=== PATIENT | female | born 1945 ===

== ENCOUNTER 2020-11-11 17:22 | Inpatient (IN) | payer MEDICARE, MEDICAID ==
[~2020-11-11] VITALS: Ht 147.3 cm; Wt 43.5 kg
[2020-11-11 17:00] VITALS: BP 168/75; PULSE 65; TEMP 97.9
[2020-11-11] MEDS ORDERED: ASPIRIN 81M81 MG/TA2 PO (18:07)
[2020-11-11] MEDS ORDERED: MS CONTIN 660 MG/TAB PO (18:07)
[2020-11-11] MEDS ORDERED: MOVANTIK25 MG PO (18:08)
[2020-11-11] MEDS ORDERED: PROTONIX 40MG T40 MG PO (18:08)
[2020-11-11] MEDS ORDERED: RT SPIRIVA18 MCG IH (18:09)
[2020-11-11] MEDS ORDERED: CARAFATE 1GM1 G PO (18:09)
[2020-11-11 19:38] VITALS: BP 165/92; PULSE 65; TEMP 97.8
--- NOTE | 2020-11-11 19:45 | NUR ---
Called with c/o pain to right lower extremity-rating pain 8/10 on pain scale-described as constant ache with intermittent sharp jabs. States she usually takes her scheduled MS Contin at 02/12-states its behind now and she needs the times changed. Done at this time and administered. Noted to have elevated BPs 160s/90s. Will recheck in one hour post liang meds. Will continue to monitor.
[2020-11-11 20:00] LABS: CALCIUM 8.4 mg/dL (8.4-10.2); CREATININE, serum 0.68 (0.52-1.25); MAGNESIUM 2.1 mg/dL (1.6-2.3); POTASSIUM 3.4 mmol/L (3.4-5.0)
--- NOTE | 2020-11-11 20:00 | NUR ---
Report received, assumed care for night shfit. Assessment complete. A&Ox3-drowsy. IV to right AC flushes without difficulty. Admission orders initiated. Vitals stable-slightly elevated BP but rating pain 8/10 to right lower ext/pelvis-scheduled Ms Contin given per order. Plan of care discussed for this shift to include HS meds/pain meds/NPO at midnight/K protocol/calling for questions/concerns. Verbalizes understanding/denies questions/concerns. Call light in reach/bed alarm on. Will monitor.
[2020-11-11 20:05] LABS: PROTHROMBIN TIME 10.8 SECONDS (9.7-12.8)
[2020-11-11 20:07] LABS: PRE ALBUMIN 13.8 mg/dL (17.6-36.0)
[2020-11-11 20:11] LABS: TROPONIN-I 0.018 ng/mL (0.000-0.035)
[2020-11-11 21:07] VITALS: BP 143/82
--- NOTE | 2020-11-11 23:00 | NUR ---
Patient accidently spilled second dose of potassium. States she had taken in some of it but unsure on how much she actually drank before spilling. States she thinks she had taken almost half. WIll give 3rd dose a little early due to NPO at midnight and not taking all of second dose.
[2020-11-11 23:14] LABS: PH 7 (5-8); SQUAMOUS EPITHELIAL None Seen /hpf; URINE APPEARANCE Clear; URINE BACTERIA None Seen /hpf; URINE BILIRUBIN Negative (NEGATIVE); URINE BLOOD 2+ (NEGATIVE); URINE COLOR Straw; URINE GLUCOSE Negative (NEGATIVE); URINE KETONE Negative (NEGATIVE); URINE LEUKOCYTE ESTERASE Negative (NEGATIVE); URINE NITRATE Negative (NEGATIVE); URINE PROTEIN(semi-quant) Negative (NEGATIVE); URINE RBC 20-50 /hpf; URINE UROBILINOGEN Negative (NEGATIVE)
[2020-11-11 23:30] LABS: COLLECTION METHOD CLEAN CATCH
[2020-11-11 23:36] VITALS: BP 155/82; PULSE 60; TEMP 97.8
[2020-11-12] VITALS (13 sets, daily range): BP systolic 141–169; BP diastolic 67–89; PULSE 60–103; TEMP 97.6–99
--- NOTE | 2020-11-12 03:23 | NUR ---
Resting in bed eyes closed. No s/s of pain noted.
--- NOTE | 2020-11-12 03:53 | NUR ---
Called with c/o pain to right lower ext-rating pain 8/10 on pain scale-described as throbbing. Morphine 2mg given per dr order. Will monitor.
--- NOTE | 2020-11-12 06:01 | NUR ---
Rested most of this shift. Did receive one dose of morphine IV for pain. Has remained NPO since MN. SCD/VASILIY to left lower ext. Refused ice pack but is at bedside. Currently resting with eyes closed. Call light in reach/bed alarm on. Will monitor.
--- NOTE | 2020-11-12 06:23 | NUR ---
Called with c/o pain to right lower extremity/pelvis. Rating pain 8/10 on pain scale-described as constant throbbing with sharp jabs. Morphine given per dr order. Repositioned in bed with pillow support. Still refusing ice pack but left at bedside in case mind is changed. Denies any other questions/concerns. Call light in reach. Will monitor.
[2020-11-12 06:27] LABS: BASO # 0.1 (0.0-0.2); BASO % 1.1 % (0.0-2.0); EOS # 0.4 (0.0-0.7); EOS % 7.6 % (0-4.0); GRAN # 2.7 (1.4-6.5); GRAN % 51.2 % (42.2-75.2); LYMPH # 1.7 (1.2-3.4); LYMPH % 31.3 % (20.0-51.0); MEAN CELL VOLUME 89 fl (80.0-100.0); MEAN CORPUSCULAR HGB CONC 31 g/dl (33.0-37.0); MEAN PLATELET VOLUME 10.5 fl (7.4-10.4); MONO # 0.5 (0.1-0.6); MONO % 8.6 % (1.7-9.3); PLATELET COUNT 312 K/mm3 (130-400); RED BLOOD COUNT 3.27 M/mm3 (4.10-5.30); REDCELL DISTRIBUTION WIDTH-CV 14.4 % (11.5-14.5)
[2020-11-12 06:28] LABS: HEMOGLOBIN 9.1 g/dl (12.5-16.0); MEAN CORPUSCULAR HEMOGLOBIN 28 pg (27.0-31.0)
--- NOTE | 2020-11-12 06:33 | NUR ---
Dr Le paged to notify of consult.
--- NOTE | 2020-11-12 07:10 | NUR ---
Lying in bed with eyes open. Alert and oriented x4. Rates pain in right leg 8/10 at this time. Patient is aware that she is NPO, provide mouth swabs to moisten mouth. Discuss that cardiology will need to clear her for surgery. Patient denies additional needs or concerns at this time.
--- NOTE | 2020-11-12 09:00 | NUR ---
Page sent to Dr. Le to see if he seen page earlier this a.m. in regards to consult.
--- NOTE | 2020-11-12 09:03 | NUR ---
Call made to [facility] to obtain echo report. They will fax at this time.
--- NOTE | 2020-11-12 09:05 | NUR ---
Receive call back from Dr. Le and he is aware of consult.
--- NOTE | 2020-11-12 09:16 | NUR ---
Initial visit; Patient thanked Shift Supervisor for introducing herself and offering God's blessings.
--- NOTE | 2020-11-12 09:36 | NUR ---
SW met with the patient to discuss discharge plan. The patient lives alone in [place]. She states that her three sons: Fitz Jiménez (ph#[phone]), and Alonzo also live in [place]. She reports needing some assistance with bathing and has a cane. She states that her anxctffd-bs-gcs, Elida (ph#[phone]), is an RN and stays with her 3-4 hours everyday and assists her with bathing. She states that her three children check in on her everyday as well. The patient's PCP is Dr. Sujata Adler and she receives her medications from [facility] in [place]. She reports no difficulties obtaining her meds. The patient does not have a DPOA-HC and she was not interested in completing one while here. Her is and she has three children: Fitz Jiménez, and Alonzo. The patient has a hip fracture. SW discussed post-acute rehab upon discharge. The patient states that she broke her hip in the past and that she returned back home afterwards with assistance from family. The patient states that does not want to go anywhere and that she would prefer to return home again upon discharge and would have help from her family. SW then contacted the patient's son, Fitz, to review the above information. Fitz reports that he has the same concerns about the patient needing rehab, but he confirms that the patient broke her hip in the past and she returned home and rehabed the hip from there. He states that him and his family would like to get through the surgery first and then go from there. SW to continue to follow.
--- NOTE | 2020-11-12 11:00 | NUR ---
Rating pain 9/10 in right leg and requests pain medication. Will administer Morphine as prescribed. Patient resting in bed. Denies additional needs.
--- NOTE | 2020-11-12 11:39 | NUR ---
Dr. Webb calls to see if Cardio has cleared patient and to say that once patient is cleared they are able to get her in for surgery this afternoon, if cleared early enough. Page sent to JES Lemus, to provide update and see if clearance will be done early this afternoon.
--- NOTE | 2020-11-12 11:42 | NUR ---
Receive call back from JES Lemus with cardio, and they will be up to see patient.
--- NOTE | 2020-11-12 11:58 | NUR ---
Dr. Pete in to see patient. He clears patient for surgery. Dr. Webb notified.
--- NOTE | 2020-11-12 12:05 | NUR ---
Consent reviewed with the patient. Denies questions, verbalizes understanding and signs consent. Spoke with Elida, daughter in law, per patient request to let them know they will be taking patient for procedure at this time. Review visitor policy with Elida.
--- NOTE | 2020-11-12 12:13 | NUR ---
Júnior here to take patient to surgery via bed at this time.
--- NOTE | 2020-11-12 14:35 | NUR ---
Patient back to room via bed from PACU. Alert and oriented x4. No pain at this time. CMS to right lower extremity intact. Dressing to right hip CDI. Patient able to move lower extremities without difficulty. Denies needs at this time.
--- NOTE | 2020-11-12 15:09 | NUR ---
Rating pain 7/10 in right leg, sharp. Patient requests pain medication. Will administer as prescribed.
--- NOTE | 2020-11-12 16:13 | NUR ---
Sitting up in bed eating japanese fries and watching TV. Patient says that her son is upset about the one visitor policy. Explain to the patient why it is only one visitor. Patient verbalizes understanding. Denies additional needs at this time.
--- NOTE | 2020-11-12 16:41 | NUR ---
Lying in bed with eyes closed. Respirations even and unlabored. No signs or symptoms of discomfort noted at this time.
--- NOTE | 2020-11-12 18:08 | NUR ---
Rating pain 8-9/10 in right leg and requests pain medication. Administer Morphine as prescribed. Patient denies further needs at this time.
--- NOTE | 2020-11-12 20:30 | NUR ---
Patient resting in bed. Complaints of 10/10 pain to her right hip. Scheduled pain medication administered. Dressing to right hip clean, dry, and intact. SCDs and teds to bilateral legs. Fluids infusing. Patient's right leg was positioned inward. Pillow placed in between knees to better position her right leg. Patient complaining that the pain medicine is not controlling her pain and she needs more. Patient has been receiving 2 mg of morphine every couple hours and just had her scheduled 60 mg of MS contin.
--- NOTE | 2020-11-12 21:58 | NUR ---
Patient requested something for pain. Morphine administered. Patient repositioned on her side with a pillow between her knees and was given a warm blanket.
--- NOTE | 2020-11-13 02:18 | NUR ---
Patient just threw up. Patient reports she feels better now and does not want anything for nausea. She reports it is normal for her to throw up and has been happening for years.
[2020-11-13 04:00] VITALS: BP 156/79; PULSE 76; TEMP 98.3
--- NOTE | 2020-11-13 05:56 | NUR ---
Patient has had a lot of pain throughout the shift. Morphine given PRN. Patient repositioned to help her get more comfortable. Patient is eager to go home.
[2020-11-13 06:12] LABS: BASO # 0.1 (0.0-0.2); BASO % 0.6 % (0.0-2.0); EOS # 0.1 (0.0-0.7); EOS % 1.1 % (0-4.0); GRAN # 9.4 (1.4-6.5); GRAN % 83.7 % (42.2-75.2); LYMPH # 0.9 (1.2-3.4); LYMPH % 7.8 % (20.0-51.0); MEAN CELL VOLUME 89 fl (80.0-100.0); MEAN CORPUSCULAR HGB CONC 31 g/dl (33.0-37.0); MEAN PLATELET VOLUME 10.2 fl (7.4-10.4); MONO # 0.7 (0.1-0.6); MONO % 6.5 % (1.7-9.3); PLATELET COUNT 333 K/mm3 (130-400); RED BLOOD COUNT 3.52 M/mm3 (4.10-5.30); REDCELL DISTRIBUTION WIDTH-CV 14.2 % (11.5-14.5)
[2020-11-13 06:22] LABS: CALCIUM 8.2 mg/dL (8.4-10.2); CREATININE, serum 0.72 (0.52-1.25)
[2020-11-13 06:24] LABS: HEMATOCRIT 31.3 % (37.0-47.0); HEMOGLOBIN 9.6 g/dl (12.5-16.0); MEAN CORPUSCULAR HEMOGLOBIN 27 pg (27.0-31.0)
--- NOTE | 2020-11-13 07:00 | NUR ---
Lying in bed with eyes open. Alert and oriented x4. Rates pain to right leg 8/10. Explain that the rn night nurse has given her pain medication already. Patient is also having some nausea and reports that she has vomited a couple times and this is normal for her. Offer Zofran and the patient declines. Dressing to right hip CDI. Discuss with the patient that therapy will be coming by today to work with her. Patient verbalizes understanding. Denies additional needs at this time.
[2020-11-13 07:40] VITALS: BP 146/72; PULSE 74; TEMP 98.7
--- NOTE | 2020-11-13 07:55 | NUR ---
Patient continues to have some nausea, does not want to order breakfast at this time. Discuss Zofran with the patient and patient agrees. Call INDIRA Lawson, and orders placed for Zofran. Administer as prescribed. Patient resting in bed at this time. Denies additional needs.
--- NOTE | 2020-11-13 08:32 | NUR ---
Patient daughter in law Elida here. Patient still has some nausea and is having pain still. Elida says that the patient battles nausea and vomiting on a daily basis along with chronic pain. Patient has ordered some scrambled eggs to try to eat. Elida brought in patient home meds, Amitiza and Movantik. Patient prefers to take the Movantik over the AMitiza. Placed in med room and pharmacy made aware that the patient home meds were there.
--- NOTE | 2020-11-13 09:15 | NUR ---
PT and OT in room working with the patient. Patient assisted into chair. Rates pain in right leg 9/10, sharp, requests pain medication. Administer [place] as prescribed. Patient able to eat some crackers. Daughter in law remains in room with the patient. OT continues to work with the patient at this time. Denies additional needs.
--- NOTE | 2020-11-13 10:03 | NUR ---
Remains sitting up in recliner. Rates pain in right leg 03/06. Patient says that she she is due for pain medication next she would like the pills. Explain that it is too soon at this time but we will reassess when it is time for the medication. COntinues to have some nausea. Patient declines additional needs at this time.
--- NOTE | 2020-11-13 11:20 | NUR ---
PT notified SW that she would recommend home with supervision and home health, if not post-acute rehab. OT recommends home with family assist vs post-acute rehab. SW attempted to meet with the patient to review the above. She was sleeping. SW contacted the patient's son, Fitz, to discuss the above. Fitz reports that he needs to talk to his about the options and requests that SW contact him back at 1500. SW to continue to follow.
--- NOTE | 2020-11-13 11:48 | NUR ---
Patient sitting up in recliner with eyes closed. Respirations even and unlabored. No signs or symptoms of discomfort noted.
[2020-11-13 12:02] VITALS: BP 113/73; PULSE 75; TEMP 99.3
--- NOTE | 2020-11-13 12:06 | NUR ---
Patient calls and out and would like to get back to bed. Rating pain in right leg 7/10, describes as stabbing. Explain that we will bring pain medication when it is time as patient requests pain medication. Transfers from chair to bed with assist of one and use of walker. Gait slow but steady. Assist into comfortable position in bed. Denies additional needs at this time.
--- NOTE | 2020-11-13 13:25 | NUR ---
Lying in bed with eyes closed. Respirations even and unlabored. No signs or symptoms of discomfort noted at this time.
--- NOTE | 2020-11-13 14:36 | NUR ---
Patient calls out and would like medication for nausea and pain. Administer Zofran as prescribed. Rates pain in right leg 7/10, stabbing. Administer pain medication as prescribed. Patient resting in bed with eyes open. Says that eggcrate mattress has helped and is more comfortable. Denies additional needs at this time.
--- NOTE | 2020-11-13 15:29 | NUR ---
Lying in bed with eyes closed. Respirations even and unlabored. No signs or symptoms of discomfort noted at this time.
--- NOTE | 2020-11-13 15:47 | NUR ---
REGINO contacted the patient's son, Fitz, to follow up on preference for home with home health vs post-acute rehab. Fitz's , Elida, was also on the call. Fitz and Elida report that they have decided to purse with the patient coming home with their support. They are interested in home health from [facility] out of [place]. REGINO contacted and faxed a referral to Judy at [facility]. Judy reports that they are able to accept the patient for services. REGINO to update the patient's family. REGINO to continue to follow.
[2020-11-13 15:50] VITALS: BP 123/58; PULSE 71; TEMP 98.8
--- NOTE | 2020-11-13 15:52 | NUR ---
Lying in bed with eyes closed. Opens eyes when name called out. Rates pain 6/10 in right leg. Says later on she will want to try to get up to walk a little bit. Has ordered a sugar cookie and hot cocoa from the kitchen. Denies further needs at this time.
--- NOTE | 2020-11-13 17:16 | NUR ---
Lying in bed with eyes closed. Opens eyes when enter room. Patient had medium episode of brown emesis in bucket. Patient continues to have some nausea. Pain is getting better. Patient denies additional needs at this time.
--- NOTE | 2020-11-13 20:00 | NUR ---
PT COMPLAINS OF PAIN. MEDICATED WITH HS MEDS INCLUDING HER SCHEDULED MS CONTIN. PT HAS IVF INFUSING TO LEFT FOREARM. DRSG TO RIGHT HIP INTACT. REPOSITIONS SELF IN BED. BELL TO BSD WITH YELLOW URINE.
[2020-11-13 20:09] VITALS: BP 114/60; PULSE 72; TEMP 99.4
--- NOTE | 2020-11-13 23:06 | NUR ---
MEDICATED WITH NORCO 5/325MG 2 TABS PO AT THIS TIME FOR PAIN.
[2020-11-14 00:28] VITALS: BP 96/54; PULSE 64; TEMP 98.1
--- NOTE | 2020-11-14 02:36 | NUR ---
MEDICATED WITH NORCO 5/325MG 2 TABS PO AT THIS TIME FOR PAIN TO RIGHT HIP.
--- NOTE | 2020-11-14 04:15 | NUR ---
PT ASKING FOR PAIN MEDS. MEDICATED WITH MORPHINE 2MG IVP, TOO EARLY FOR ANY ORAL PAIN MEDS.
[2020-11-14 04:58] VITALS: BP 120/66; PULSE 68; TEMP 98.4
[2020-11-14 05:56] LABS: MEAN CELL VOLUME 90 fl (80.0-100.0); MEAN CORPUSCULAR HGB CONC 31 g/dl (33.0-37.0); MEAN PLATELET VOLUME 9.6 fl (7.4-10.4); PLATELET COUNT 266 K/mm3 (130-400); RED BLOOD COUNT 2.86 M/mm3 (4.10-5.30); REDCELL DISTRIBUTION WIDTH-CV 14.2 % (11.5-14.5)
[2020-11-14 06:08] LABS: CREATININE, serum 0.71 (0.52-1.25)
[2020-11-14 06:10] LABS: HEMOGLOBIN 7.9 g/dl (12.5-16.0); MEAN CORPUSCULAR HEMOGLOBIN 28 pg (27.0-31.0)
[2020-11-14 06:11] LABS: HEMATOCRIT 25.7 % (37.0-47.0)
--- NOTE | 2020-11-14 06:28 | NUR ---
MEDICATED WITH NORCO 2 TABS WELL SCHEDULED AM MED.
--- NOTE | 2020-11-14 06:40 | NUR ---
Pt doing well this morning, no needs at this time, call light within reach
[2020-11-14 07:16] VITALS: BP 133/61; PULSE 68; TEMP 98.2
--- NOTE | 2020-11-14 07:53 | NUR ---
Pt resting in bed upon entering room. She has eaten breakfast and reports feeling full. Pt does report that she is having a lot of pain. She complaints of pain down toward her right foot. Floated heels on pillow, scheduled pain medication given. Pt denies any other needs, will continue to monitor
[2020-11-14 11:26] VITALS: BP 108/52; PULSE 70; TEMP 98.4
--- NOTE | 2020-11-14 11:50 | NUR ---
Pt does fall asleep easily and quickly during conversation, but pt requested something for pain. Informed her that once her lunch comes that I would bring in something for pain. She does grimace some with movement to her right leg. It is always bent and raised, she stated that this is always how she has it positioned. She is currently sitting up in the chair.
--- NOTE | 2020-11-14 12:49 | NUR ---
Pain medication given at this time. She did eat a couple chicken strips for lunch. No other needs, will continue to monitor
[2020-11-14 15:04] VITALS: BP 111/63; PULSE 75; TEMP 98.1
--- NOTE | 2020-11-14 16:52 | NUR ---
Pt doing well. She is more awake now than she was this morning. She does get around well with stand by assist. Voiding no difficulty since removing the verde. Pain medication given, no other needs, will continue to monitor.
--- NOTE | 2020-11-14 18:41 | NUR ---
Pt continues to do well, report given
[2020-11-14 19:11] VITALS: BP 113/66; PULSE 74; TEMP 98.7
[2020-11-15 00:32] VITALS: BP 130/70; PULSE 68; TEMP 98.1
[2020-11-15 04:14] VITALS: BP 129/76; PULSE 67; TEMP 98.1
--- NOTE | 2020-11-15 05:50 | NUR ---
NEEDS MET THORUGH OUT NIGHT. NEEDS MET
[2020-11-15 06:22] LABS: BASO # 0.1 (0.0-0.2); BASO % 0.8 % (0.0-2.0); EOS # 0.4 (0.0-0.7); EOS % 5.6 % (0-4.0); GRAN # 4.2 (1.4-6.5); LYMPH # 1.5 (1.2-3.4); LYMPH % 23.1 % (20.0-51.0); MEAN CELL VOLUME 90 fl (80.0-100.0); MEAN CORPUSCULAR HGB CONC 30 g/dl (33.0-37.0); MEAN PLATELET VOLUME 11.5 fl (7.4-10.4); MONO # 0.5 (0.1-0.6); MONO % 7.2 % (1.7-9.3); PLATELET COUNT 215 K/mm3 (130-400); RED BLOOD COUNT 2.92 M/mm3 (4.10-5.30); REDCELL DISTRIBUTION WIDTH-CV 14.1 % (11.5-14.5)
[2020-11-15 06:32] LABS: HEMATOCRIT 26.3 % (37.0-47.0); HEMOGLOBIN 7.9 g/dl (12.5-16.0); MEAN CORPUSCULAR HEMOGLOBIN 27 pg (27.0-31.0)
[2020-11-15 06:34] LABS: CALCIUM 8.3 mg/dL (8.4-10.2); CREATININE, serum 0.71 (0.52-1.25)
--- NOTE | 2020-11-15 06:55 | NUR ---
Lying in bed with eyes open. Alert and oriented x4. Rates pain to right leg 6/10, explain that we will administer her scheduled MS Contin at this time. Dressing to right hip CDI. Patient is hopeful to get discharged today. Denies additional needs or concerns at this time.
[2020-11-15] MEDS ORDERED: ASPI325T6 PO (07:20)
[2020-11-15] MEDS ORDERED: VITAMIN C500 MG PO (07:21)
[2020-11-15] MEDS ORDERED: OSCAL 500 TAB500 MG PO (07:21)
[2020-11-15] MEDS ORDERED: DUO-KAPS1 CAP PO (07:22)
[2020-11-15 07:46] VITALS: BP 147/81; PULSE 70; TEMP 97.5
[2020-11-15] MEDS ORDERED: NORCO 325 MG-51 TAB PO (08:52)
--- NOTE | 2020-11-15 08:53 | NUR ---
Lying in bed with eyes open. Dressing to right hip removed. Edges well approximated, no redness/swelling/discharge noted. Area cleaned with NS and patted dry. Apply two 4x4's to site and reinforce with tegaderm. Patient denies additional needs at this time.
--- NOTE | 2020-11-15 10:23 | NUR ---
Patient will discharge home today 11/15 with [facility]. REGINO faxed D/C orders to [facility] and contacted agency to notify of discharge. There are no other needs at this time.
--- NOTE | 2020-11-15 10:32 | NUR ---
Sitting on edge of bed with eyes open. Rating pain in right leg 8/10, would like pain medication. Administer [place] as prescribed. Patient says that her son and daughter in law should be here around 11:30 to pick her up and she would like discharge instructions to be given to her and her daughter in law. Denies additional needs at this time.
--- NOTE | 2020-11-15 10:55 | NUR ---
Patient will discharge home today 11/15 with [facility] for PT. Patient's LP will provide transport. SW faxed records to OP. No further needs at this time.
[2020-11-15 11:27] VITALS: BP 138/70; PULSE 69; TEMP 98.7
--- NOTE | 2020-11-15 12:18 | NUR ---
Patient daughter in law, Elida, here. Review all discharge instructions with the patient and Elida. Verbalize understanding to all, denies questions. Patient wants daughter in law to sign discharge paperwork, done at this time. Discharge packet provided to daughter in law. Patient assisted into wheelchair and taken out to POV by this nurse with all belongings.
--- NOTE | 2020-11-16 09:42 | NUR ---
formula room worker faxed home health orders, again, to [facility], per their request.
--- NOTE | 2020-11-16 09:47 | NUR ---
The patient discharged back home on Monday, 11/15, with home health PT/OT/custodial from [facility] out of [place]. SW notified and faxed d/c orders and summary to Judy at [facility]. No additional needs at this time.
== END 2020-11-15 12:18 | disposition home health service (06) | DRG 482 ==
LOC: SURG 17:22
PROVIDERS: Nurse Practitioner Family; Orthopaedic Surgery; Physician Assistant; ADMIT Hospitalist
PROC: 0QS634Z Reposition Right Upper Femur with Internal Fixation Device, Percutaneous Approach (ICD-10-PCS; principal; 2020-11-12 12:00)
DX: S72.011A Unspecified intracapsular fracture of right femur, initial encounter for closed fracture (principal); J43.9 Emphysema, unspecified; F17.210 Nicotine dependence, cigarettes, uncomplicated; M41.9 Scoliosis, unspecified; M51.37 Other intervertebral disc degeneration, lumbosacral region; M85.80 Other specified disorders of bone density and structure, unspecified site; E87.6 Hypokalemia; D53.9 Nutritional anemia, unspecified; G89.29 Other chronic pain; K31.84 Gastroparesis; R55 Syncope and collapse; D47.3 Essential (hemorrhagic) thrombocythemia; I49.9 Cardiac arrhythmia, unspecified; K59.00 Constipation, unspecified; Z88.8 Allergy status to other drugs, medicaments and biological substances; Z79.82 Long term (current) use of aspirin; W19.XXXA Unspecified fall, initial encounter
CPT/HCPCS: 99223-AI; 99231-AI; 99232-AI; 99239; A4314; A9284; C1713; J0690; J2250; J2270; J2405; J2704; J2795; J3010; J7120